=== PATIENT | male | born 1990 | race Caucasian/White ===

== ENCOUNTER 2018-12-26 23:35 | Emergency (ER) | payer MEDICAID ==
[~2018-12-26] VITALS: Ht 162.6 cm; Wt 61.0 kg
[2018-12-27] MEDS ORDERED: CEFTRIAXONE SODIUM 250 MG/VIAL IM ONE (01:45)
[2018-12-27] MEDS ORDERED: HYDROCODONE/ACETAMINOPHEN 5/325MG TABLET PO ONE (01:45)
[2018-12-27] MEDS ORDERED: AZITHROMYCIN 500 MG TABLET PO ONE (01:45)
[2018-12-27 02:57] LABS: CLARITY URINE TURBID (CLEAR); COLOR URINE YELLOW (YELLOW); KETONES URINE NEGATIVE (NEGATIVE); LEUKOCYTE ESTERASE URINE 3+ (NEGATIVE); NITRITE URINE NEGATIVE (NEGATIVE); OCCULT BLOOD URINE 2+ (NEGATIVE); PROTEIN URINE 3+ (NEGATIVE); SPECIFIC GRAVITY URINE 1.025 (1.005-1.030)
[2018-12-27 04:05] VITALS: BP 123/94
[2018-12-29 09:04] LABS: CHLAMYDIA TRACHOMATIS NAA Negative (Negative); NEISSERIA GONORRHOEAE NAA Positive (Negative)
== END 2018-12-27 04:08 | disposition home or self-care (01) ==
LOC: ER 23:35
DX: R30.0 Dysuria (principal); N44.2 Benign cyst of testis
CPT/HCPCS: 76857; 76870; 81003; 87086; 87491; 87591; 93976; 96372; 99284; J0696

== ENCOUNTER 2023-10-22 05:44 | Emergency (ER) | payer MEDICAID ==
[~2023-10-22] VITALS: Ht 172.7 cm; Wt 64.0 kg
[2023-10-22 05:48] VITALS: O2SAT 98
[2023-10-22] MEDS: MORPHINE SULFATE 4 MG/ML INJ (FOR IV/IM USE) IV STA (06:01)
[2023-10-22] MEDS ORDERED: IBUP-2028 PO (06:36)
[2023-10-22] MEDS ORDERED: LIDOCAINE HCL/PF 1% 10 MG/ML 5ML VIAL INFIL ONE (07:00)
[2023-10-22] MEDS: KETOROLAC 30MG/ML VIAL IV ONE (07:02)
[2023-10-22 07:18] VITALS: BP 122/81; PULSE 80; RESP 16; TEMP 98.2
== END 2023-10-22 07:20 | disposition home or self-care (01) ==
LOC: ER 06:11
DX: S82.831A Other fracture of upper and lower end of right fibula, initial encounter for closed fracture (principal); F12.90 Cannabis use, unspecified, uncomplicated; J45.909 Unspecified asthma, uncomplicated; Y08.89XA Assault by other specified means, initial encounter; Y93.89 Activity, other specified; Y92.89 Other specified places as the place of occurrence of the external cause; Y99.8 Other external cause status
CPT/HCPCS: 73610; 12001; 29505; 96374; 96375; 99284; J1885; J3490; J2270; Z7610 ×4